=== PATIENT | female | born 1950 | race Caucasian/White ===

== ENCOUNTER 2023-09-25 20:20 | Emergency (ER) | payer MEDICARE ==
--- NOTE | 2023-09-25 21:33 | ED ---
Fall HPI - General Chief Complaint: Fall Stated Complaint: Fall, head injury Time Seen by Provider: 09/25/23 20:56 Source: patient Mode of arrival: wheelchair - History of Present Illness Initial Comments: Patient is a 73-year-old female presenting with her for fall forward from a chair, sustaining a laceration to her lip, abrasion to her nose and chin. 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 She denies LOC or neck pain. Patient's confirms patient is behaving at baseline, no confusion. Patient unsure of her last Tdap vaccine. Not on blood thinners. No changes in vision, numbness, or focal weakness. - Related Data Allergies Allergy/AdvReac Type Severity Reaction Status Date / Time Sutures AdvReac Unknown Verified 09/25/23 20:33 Review of Systems ROS Statement: Those systems with pertinent positive or pertinent negative responses have been documented in the HPI. Past Medical History Additional Past Medical History / Comment(s): ulcerative colitis, anemia History of Any Multi-Drug Resistant Organisms: None Reported Past Surgical History: Hysterectomy Past Psychological History: No Psychological Hx Reported Smoking Status: Never smoker Past Alcohol Use History: Occasional Past Drug Use History: None Reported General Exam - General Exam Comments Initial Comments: PE: CONSTITUTIONAL: No apparent distress, well appearing SKIN: warm, dry, no jaundice, hives or petechiae, 0.5 cm to 1 cm full-thickness laceration to right lower lip, interrupting the vermilion border, does not extend into muscle, bleeding controlled, 1 cm superficial laceration to chin, 1.5 cm linear abrasion to nasal bridge EYES: Pupils are equally round, extraocular movements intact without nystagmus, clear conjunctiva, non-icteric sclera HENT: normocephalic, facial injuries as above, chipped tooth #8, Garcia class I- II, moist mucus membranes, oropharynx clear without exudates, no septal hematomas or lacerations; small bruising to nasal bridge NECK: , Full range of motion, no midline spinal tenderness to palpation, no step-offs or bony tenderness, able to range neck through full range of motion without any midline neck pain, radiculopathy or sensory deficits PULMONARY: Clear to auscultation without wheezes, rhonchi, or rales, normal excursion, no accessory muscle use and no stridor CARDIOVASCULAR: Regular rate, rhythm, normal S1 and S2. No appreciated murmurs, rubs or gallops. Strong radial pulses with intact distal perfusion. No lower extremity edema GASTROINTESTINAL: Soft, non-tender, non-distended, no palpable masses, no rebound or guarding. No hepatosplenomegaly MUSCULOSKELETAL: Extremities have no gross deformity, no edema, redness, or swelling. No calf swelling ot TTP. NEUROLOGIC:_a/o x 3, GCS 15, normal mentation and speech. Moves all extremities x 4 without motor or sensory deficit PSYCHIATRIC:_normal mood and affect, thought process is clear and linear Limitations: no limitations Course Vital Signs 09/25/23 09/25/23 09/25/23 20:28 22:42 23:59 Temperature 97.3 F L 97.8 F Pulse Rate 73 65 75 Respiratory 18 16 16 Rate Blood Pressure 127/81 126/77 120/73 O2 Sat by Pulse 96 96 97 Oximetry Procedures - Laceration Laceration #1 Consent Obtained: verbal consent Indication: laceration Site: lip Depth: [id number] Sedation/Analgesia: none Anesthetic Used: lidocaine 2%, with epi Anesthesia Technique: nerve block (please see accompanying procedure note) Pre-repair: wound explored, irrigated extensively, deep structures intact Type of Sutures: vicryl (absorbable, inner sutures), other (prolene, outer sutures) Size of Sutures: 5-0 (5-0 vicryl) Patient Tolerated Procedure: well - Nerve Block Consent Obtained: verbal consent Local Anesthetic Used: LIDOCAINE 2% with EPI Amount of anesthesia used: 2 (ml) Side: left, right Intraoral Nerve Block: mental (bilateral submental) Procedure Successful: Yes Patient Tolerated Procedure: well Additional Comments: Risks and benefits of procedure were discussed with patient, risks including but not limited to incomplete analgesia, allergic reaction, nerve and/or vascular damage. Questions were answered to patient's satisfaction, patient was agreeable with procedure Medical Decision Making - Medical Decision Making Was pt. sent in by a medical professional or institution (, [facility], STREETCAR REPAIRER, urgent care, hospital, or skilled nursing...) When possible be specific @ -No Did you speak to anyone other than the patient for history (EMS, parent, family, police, friend...)? What history was obtained from this source @ -Spoke with patient's who assisted in providing history Did you review nursing and triage notes (agree or disagree)? Why? @ -I reviewed and agree with nursing and triage notes-noted patient fell forward onto a chair abrasion to nose, laceration to lip, no LOC, no blood thinners, Were old charts reviewed (outside hosp., previous admission, EMS record, old EKG, old radiological studies, urgent care reports/EKG's, skilled nursing records)? Report findings @ -No old charts were reviewed Differential Diagnosis (chest pain, altered mental status, abdominal pain women, abdominal pain men, vaginal bleeding, weakness, fever, dyspnea, syncope, headache, dizziness, GI bleed, back pain, seizure, CVA, palpatations, mental health, musculoskeletal)? @ -Differential diagnosis remains broad however top considerations include abrasion, laceration, contusion, nasal bone fracture; additionally, given patient's age and alcohol intoxication, she cannot be cleared from imaging via Quinter CT head rule or C-spine rule, will evaluate for traumatic intracranial injury such as subdural hematoma, intracranial hemorrhage, subarachnoid hemorrhage, cervical spine injury with CT brain and C-spine there was note boo ent does appear clinically sober and is behaving appropriately, has no midline spinal tenderness to palpation or further signs of cervical spine injury, arrives without c-collar in place, I did request c-collar placed after evaluation with pending CT C-spine. X-rays interpreted by me (1pt min.). @ -None done CT interpreted by me (1pt min.). @ -CT brain, C-spine read as no acute process, multilevel DJD without fractures on CT cspine, I reviewed CT brain and C-spine, I agree with radiologist interpretation, I see no evidence of fracture, hemorrhage, malalignment or acute process. CT max face was not read by radiologist due to large volume of imaging to be reviewed, I personally reviewed CT max face, I see no evidence of fractures, malalignment or other acute traumatic injury. U/S interpreted by me (1pt. min.). @ -None done What testing was considered but not performed or refused? (CT, X-rays, U/S, labs)? Why? @ -None What meds were considered but not given or refused? Why? @ -None Did you discuss the management of the patient with other professionals (professionals i.e. , PA, STREETCAR REPAIRER, lab, RT, psych nurse, social media community manager, probate clerk, teacher, security public safety officer, case supervisor)? Give summary @ -No Was smoking cessation discussed for >3mins.? @ -No Was critical care preformed (if so, how long)? @ -No Were there social determinants of health that impacted care today? How? (Homelessness, low income, unemployed, alcoholism, drug addiction, transportation, low edu. Level, literacy, decrease access to med. care, long-term, rehab)? @ -No Was there de-escalation of care discussed even if they declined (Discuss DNR or withdrawal of care, Hospice)? DNR status @ -No What co-morbidities impacted this encounter? (DM, HTN, Smoking, COPD, CAD, Cancer, CVA, ARF, Chemo, Hep., AIDS, mental health diagnosis, sleep apnea, morbid obesity)? @ -None Was patient admitted / discharged? Hospital course, mention meds given and route, prescriptions, significant lab abnormalities, going to [place] and other [facility] [place] [facility]. Discharged- Patient is a 73-year-old female with significant medical history presenting for a mechanical fall forward with facial injury. On initial assessment patient is well-appearing and in no acute distress, at bedside. 0.5 to 1 cm full- thickness laceration to the right lower lip, crossing the vermilion border, linear abrasions to nose, 1.5 cm in length and superficial laceration to chin 1 cm in length, bleeding controlled. Though patient did drink alcohol prior to arrival, appears clinically sober. Able to converse clearly, no focal neurologic deficits. Garcia class I/II fracture of tooth #8. No tenderness/pain/sensitivity endorsed by patient. no midline spinal tenderness to palpation patient denies any numbness, tingling or weakness of the extremities and moving her neck through full range of motion. Was able to range neck through full range of motion without midline cervical pain, numbness or tingling or weakness. Patient denies additional injury. Extremities atraumatic. Though patient does appear clinically sober, breath does smell of alcohol and she endorsed alcohol use prior to arrival so due to age and alcohol intoxication a CT brain and C-spine will be obtained as well as CT max face. Tdap to be updated. Patient be given Flomaton for pain control. Please see procedure note. Informed consent was obtained for laceration repair and nerve block. I was assisted in laceration repair by physician editorial assistant Macie. Patient was agreeable to laceration repair. Vermilion border was well aligned, patient tolerated procedure well. Superficial chin laceration was amenable to repair via Steri-Strips, depth of laceration did not indicate need for sutures. CT brain and C-spine negative for acute process, C spine with multi level DJD, no fractures. C spine cleared. As noted above CT max face was unable to be read by radiologist and so was interpreted by myself. I did discuss this with the patient and pending final radiologist read. She was comfortable with discharge home without awaiting final radiologist read of CT max face, given this would result in a prolonged ED stay. I discussed with patient the importance of close follow-up with her dentist regarding fractured tooth, patient does have an appointment upcoming with her dentist so we will discuss this with him at that point. We discussed the importance of remaining on a soft/liquid diet until lip laceration is healed so as not to get food caught in the wound. She was advised to follow-up with her primary care provider for laceration reevaluation/suture removal in 3 to 5 days. We discussed options for pain control including Tylenol, ibuprofen and will be discharged home with Tylenol 3 starter pack. She was advised to apply ice to the areas of pain for up to 20 minutes every 3-4 hours to help with pain and swelling. All questions were answered and patient was discharged in stable condition. -In my medical judgment there is currently no evidence of an immediate life- threatening or surgical condition. Discharge is therefore indicated at this time. Discharge treatment instructions, follow up instructions, and appropriate emergency department return precautions were discussed with the patient and/or medical decision maker. Patient and/or medical decision maker expressed understanding of and agreed with the treatment plan, follow up instructions, and emergency department return precaution. All patient's and/or medical decision maker's questions were answered. The patient was instructed to return to the ED for any changes in symptoms, persistent symptoms, inability to obtain proper follow-up or for any further concerns. Patient received verbal and written instructions for this condition. Drug Therapy requiring intensive monitoring for toxicity (Heparin, Nitro, Insulin, Cardizem)? @ -No Were any procedures done? @ -Yes, please see procedure note Diagnosis/symptom? @ -Fall, facial injury, lip laceration, dental fracture Acute, or Chronic, or Acute on Chronic? @ -Acute Uncomplicated (without systemic symptoms) or Complicated (systemic symptoms)? @ -Uncomplicated Side effects of treatment? @ -No Exacerbation, Progression, or Severe Exacerbation? @ -No Poses a threat to life or bodily function? How? (Chest pain, [place], [place], pneumonia, PE, COPD, DKA, ARF, appy, cholecystitis, CVA, Diverticulitis, Homicidal, Suicidal, threat to staff... and all critical care pts) @ -No Disposition Clinical Impression: Facial injury, Lip laceration, Chipped tooth, Fall Disposition: HOME SELF-CARE Condition: Good Instructions (If sedation given, give patient instructions): Care For Your Stitches (ED) Additional Instructions: Every disease is a spectrum and a small chance still exists that a serious condition could develop, for this reason, please monitor yourself closely for new, changing or worsening symptoms, signs of infection such as excessive swelling, redness, discharge from your laceration, fever, confusion, headaches you cannot control with home medications, pain you cannot control with home medications, episodes of passing out, dizziness or lightheadedness, inability to tolerate/keep down fluids or your medications, inability to follow up with outpatient providers as instructed and should you experience these symptoms or should you have any further concerns for your wellbeing please return to the ED or call 911 immediately. Please keep your wound clean and dry, please use a soft foods and liquid diet until laceration is healed, please have sutures removed in 3 to 5 days. Please follow-up with your dentist regarding chipped tooth, soon as possible. Please allow Steri-Strips to fall off on their own. PLEASE call your primary care physician as soon as possible to arrange / discuss plan for followup appointment. Appointment in the next 1-3 days is strongly encouraged if possible. PLEASE let us know here before you leave if there is anything further we can do to be of any assistance. Take care and feel Better! Is patient prescribed a controlled substance at d/c from ED?: No Referrals: Glenn Martins MD [Primary Care Provider] - 1-2 days Time of Disposition: 23:54
[2023-09-25] MEDS: HYDROcodone/APAP 5-325MG 1 EACH TAB PO STA (21:39)
[2023-09-25] MEDS: DIPH,PERTUS(ACELL)TETVAC-LF 0.5 ML VIAL IM ONE (21:40)
--- NOTE | 2023-09-25 22:08 | CT ---
EXAMINATION TYPE: CT brain cspine wo con CT DLP: 1177.2 mGycm, Automated exposure control for dose reduction was used. DATE OF EXAM: 09/25/2023 10:04 PM COMPARISON: None. CLINICAL INDICATION:Female, 73 years old with history of Trauma; was at [employer], sitting in chair, fell forward and hit face on cement, abrasions to nose, lip split, denies LOC, denies thinnersS ENT TO STAT RAD TECHNIQUE: Brain: Multiple axial CT images of the brain were obtained without IV contrast. Cspine: Axial CT images from the skull base to the inferior aspect of T2 we obtained without intraven ous contrast. Coronal and sagittal reformatted images were also reviewed. FINDINGS: Brain: Extra-axial spaces: No abnormal extra-axial fluid collections. Ventricular system: Within normal limits Cerebral parenchyma: No acute intraparenchymal hemorrhage or mass effect. The jose-white junction is well differentiated. Cerebellum: Unremarkable. Mass effect: No evidence of midline shift. Intracranial vasculature: unremarkable Soft tissues: Normal. Calvarium/osseous structures: No depressed skull fracture. Paranasal sinuses and mastoid air cells: Clear. Visualized orbits: Orbital contents are intact. Cervical spine: Fracture: None. Osseous structures: Unremarkable Vertebral alignment: Within normal limits. Spinal canal/Neural Foramina: No evidence of significant spinal canal narrowing. No evidence for sign ificant neural foraminal stenosis. Neck soft tissues: Prevertebral soft tissues are within normal limits. Other: The airway is patent. The lung apices are clear. IMPRESSION: No acute intracranial process. No evidence of cervical spine fracture. Mild multilevel degenerative disc disease.
[2023-09-25 22:43] VITALS: RESP 16
[2023-09-25] MEDS: LIDOCAINE 1%-EPI 1:100,000 20 ML VIAL SQ STA (23:02)
[2023-09-25] MEDS: KETOROLAC 15 MG/ML 1 ML VIAL IM STA (23:51)
[2023-09-25] MEDS: ACET/COD 300 MG/30 MG STARTER PACK 6 TAB BTL PO STA (23:59)
[2023-09-26 00:01] VITALS: BP 120/73; PULSE 75; TEMP 97.8
--- NOTE | 2023-09-26 00:51 | CT ---
EXAM: CT Maxillofacial Without Intravenous Contrast CLINICAL HISTORY: ITS.REASON CT Reason: fall, hit face TECHNIQUE: Axial computed tomography images of the face without intravenous contrast. CTDI is 12.9 mGy and DLP is 339.3 mGy-cm. This CT exam was performed using one or more of the following dose reduction techniques: automated exposure control, adjustment of the mA and/or kV according to patient size, and/or use of iterative reconstruction technique. COMPARISON: No previous studies. FINDINGS: Bones/joints: Visualized calvarium is unremarkable. Zygomatic arches are unremarkable. Lamina papyracea are unremarkable. The maxilla are unremarkable. Mandibular condyles are normal in clinic position. Soft tissues: Unremarkable. Orbits: Orbital rims are intact. Sinuses: Unremarkable. No air-fluid levels. Dental: Limited evaluation due to artifact arising from dental wear. Nasal cavity/septum: Nasal bones are unremarkable. IMPRESSION: No acute facial injury.
== END 2023-09-26 00:02 | disposition home or self-care (01) ==
LOC: EC 20:20
DX: S01.511A Laceration without foreign body of lip, initial encounter (principal); Z88.8 Allergy status to other drugs, medicaments and biological substances; Z23 Encounter for immunization; Z90.710 Acquired absence of both cervix and uterus; W07.XXXA Fall from chair, initial encounter
CPT/HCPCS: 70450; 70486; 72125; 90471; 90715; 99284